=== PATIENT | male | born 1945 | race Two or more races ===

== ENCOUNTER 2019-02-19 07:56 | Emergency (ER) | payer OTHER, MEDICAID ==
[~2019-02-19] VITALS: Ht 167.6 cm; Wt 67.6 kg
[2019-02-19 08:05] VITALS: BP 146/86; Ht 167.6 cm; Wt 67.6 kg
== END 2019-02-19 09:28 | disposition home or self-care (01) ==
LOC: ED 07:56
DX: F32.89 Other specified depressive episodes (principal); F41.8 Other specified anxiety disorders; G47.09 Other insomnia